=== PATIENT | female | born 1960 ===

== ENCOUNTER 2023-12-17 05:24 | Day surgery (SDC) | payer OTHER ==
[2023-12-10 08:57] LABS: HEMATOCRIT 39.7 % (36.0-45.00); HEMOGLOBIN 13.7 g/dL (12.0-15.00); MEAN CELL VOLUME 87.3 fL (80.00-100.00); MEAN CORPUSCULAR HEMOGLOBIN 30.2 pg (27.00-32.0); MEAN CORPUSCULAR HGB CONC 34.6 g/dl (32.0-36.0); PLATELET COUNT 355 K/uL (150-450); RED BLOOD COUNT 4.55 M/uL (4.00-6.00); RED CELL DISTRIBUTION WIDTH 13.6 % (11.5-14.5)
[2023-12-10 08:59] LABS: URINE BACTERIA 52.9 uL (0.0-1933); URINE EPITHELIAL CELLS 9.2 uL (0.0-38.8); URINE WBC 4.9 uL (0.0-23.2)
[2023-12-10 09:03] LABS: PH,URINE 5.5; URINE BILIRRUBIN SMALL (NEGATIVE); URINE BLOOD NEGATIVE; URINE KETONE NEGATIVE (NEGATIVE); URINE LEUKOCYTE NEGATIVE; URINE NITRATE NEGATIVE; URINE PROTEIN NEGATIVE (NEGATIVE); URINE UROBILINOGEN 0.2 E.U./dl
[2023-12-10 09:04] LABS: URINE APPEARANCE CLEAR; URINE COLOR YELLOW; URINE GLUCOSE >=1000 MG/DL (NEGATIVE)
[2023-12-10 09:05] LABS: URINE CAST 0.76 uL (0.0-1.40)
[2023-12-10 09:23] LABS: INR 1.02; PARTIAL THROMBOPLASTIN TIME 29.9 SECONDS (22.0-34.0); PROTHROMBIN TIME 11.1 SECONDS (9.0-11.5)
[2023-12-10 09:54] LABS: ALBUMIN 4.1 gm/dL (3.4-5.0); BILIRUBIN TOTAL 0.54 mg/dL (0.3-1.2); CALCIUM 9.6 mg/dL (8.5-10.1); CREATININE SERUM 0.83 mg/dL (0.55-1.02); GFR 69.66; GLOBULINA 3.4 G/DL (2.4-3.5); POTASSIUM 4.29 mEq/L (3.5-5.1); TOTAL PROTEIN 7.5 gm/dL (6.4-8.2)
[~2023-12-17 05:24] MED LIST: CIMETIDINE400 MG PO; FENOFIBRATE145 MG PO; LOSARTAN POTAS100 MG PO
[2023-12-17] MEDS ORDERED: CEFAZOLIN SODIUM 1,000 MG VIAL ONE (07:42)
[2023-12-17] MEDS ORDERED: METHYLPREDNISOLONE ACETATE 80 MG/ML VIAL ONE (10:44)
[2023-12-17] MEDS ORDERED: SUGAMMADEX SODIUM 200 MG/2 ML VIAL IV ONE (10:48)
[2023-12-17] MEDS ORDERED: MORPHINE SULFATE 4 MG/ML VIAL IV ONE ×2 (11:45→12:15)
== END 2023-12-17 13:10 | disposition home or self-care (01) ==
LOC: CIR.AMB 05:24
PROVIDERS: ATTEND Orthopaedic Surgery
DX: M19.012 Primary osteoarthritis, left shoulder (principal); M24.112 Other articular cartilage disorders, left shoulder; Z88.2 Allergy status to sulfonamides; Z88.6 Allergy status to analgesic agent